=== PATIENT | male | born 1945 | race Caucasian/White ===

== ENCOUNTER → 2016-07-09 | Outpatient (CLI) | payer BC ==
[2016-07-09 10:19] LABS: CHLORIDE,CL 108 mmol/L (98-110); SODIUM,NA 141 mmol/L (136-146)
== END ==
LOC: MW.CHFP 09:34
PROVIDERS: ATTEND Student in an Organized Health Care Education/Training Program
DX: I10 Essential (primary) hypertension (principal); E11.65 Type 2 diabetes mellitus with hyperglycemia; E78.00 Pure hypercholesterolemia, unspecified
CPT/HCPCS: 36415; 80053; 80061; 82044; 83036

== ENCOUNTER 2017-04-03 20:20 | Emergency (ER) | payer BC, MEDICARE ==
[2017-04-03] MEDS ORDERED: Sodium Chloride 0.9% 2.5 ML Syringe FLUSH PRN (20:25)
[2017-04-03] MEDS ORDERED: Sodium Chloride 0.9% 10 ML Syringe FLUSH PRN (20:25)
--- NOTE | 2017-04-03 20:37 | EDM.PDOC ---
ED HPI GENERAL MEDICAL PROBLEM - General Stated Complaint: SLURRED SPEECH/PAIN LT EYE/POSSIBLE STROKE Time Seen by Provider: 04/03/17 20:22 Source of Information: Reports: Patient History Limitations: Reports: No Limitations - History of Present Illness INITIAL COMMENTS - FREE TEXT/NARRATIVE: HISTORY AND PHYSICAL: History of present illness: A Stroke Code was called at 2021 upon patient arrival. The attending physician Dr. Ross was also involved in this case upon patient arrival. Patient was ambulatory to the room with family. He presents to the emergency department today with complaints of left eye pain, slurred speech and difficulty finding words since approximately 1800 this evening. His states that he was last known well at 1800 and shortly after he started to complain of left eye pain and that the "news paper didn't make sense". The reports that he started to have difficulty finding his words and did have some slurred speech. Family members were called to the house and they brought him into the emergency department. Family members state that they have not witnessed any facial drooping or musculoskeletal weakness. Patient denies anychest pain, shortness of breath, weakness, abdominal pain, nausea, vomiting or diarrhea. Denies any fever or chills. Patient denies any recent injury, trauma, falls or head injury. Has a past medical history of cardiac bypass approximately 12 years ago, cholecystectomy and high blood pressure. Currently does take anticoagulants and antihypertensives. Review of systems: As per history of present illness and below otherwise all systems reviewed and negative. Past medical history: As per history of present illness and as reviewed below otherwise noncontributory. Surgical history: As per history of present illness and as reviewed below otherwise noncontributory. Social history: No reported history of drug or alcohol abuse. Family history: As per history of present illness and as reviewed below otherwise noncontributory. Physical exam: General: well-developed and well-nourished 71-year-old male. Alert and oriented Nontoxic appearing. HEENT: Atraumatic, normocephalic, pupils reactive, negative for conjunctival pallor or scleral icterus, mucous membranes moist, throat clear, neck supple, nontender, trachea midline. Lungs: Clear to auscultation, breath sounds equal bilaterally, chest nontender. Heart: S1S2, regular, negative for clicks, rubs, or JVD. Abdomen: Soft, nondistended, nontender. Negative for masses or hepatosplenomegaly. Negative for costovertebral tenderness. Pelvis: Stable nontender. Genitourinary: Deferred. Rectal: Deferred. Extremities: Atraumatic, negative for cords or calf pain. Neurovascular unremarkable. Neuro: Awake, alert, oriented. No sensory loss. No musculoskeltal weakness or deficets. Equal strength to both upper/lower extremities. CN II-XI intact. Speech is unclear. See NIH/Neuro Note. Patient is alert and oriented. Unable to recall his . He is hard of hearing. Able to follow commands appropriately. No facial drooping or tongue deviation noted. No musculoskeletal/motor involvement. Expressive aphasia noted during our interview, unable to identifying materials. Does have some mild dysarthria. He states, "I know what I should say, I just can't say it". NIH score of 4. 2054- consulting radiology called with the CT head report. There are no acute findings. Dr. Ross talking with family. 2104- [facility] in [place] consulted about transfer of patient. Dr. Pisano and Dr Yanez have accepted this patient. Beau recommended that TPA be given. Contraindication check-list was reviewed. Patient is a canidate based on timeline. 2119- Dr Ross discussed the use of TPA with family members, risks vs benefits were reviewed with them in great detail. They decided they did want to give this medication. patient is aware,risks versus benefits were reviewed with patient, and he is agreeable as well. NIH remains 4. Activase was given to patient based on weight (IV bolus given by Vandana - flight crew put infusion on their pump tubing). 2134- Flight crew here to take patient. appropriate paperwork was filled out.no signs remain stable. Diagnostics: CBC, CMP, troponin, PT/INR, head CT, chest x-ray, EKG, bedside blood sugar Therapeutics: Saline lock 2 Routine Neuro exams Activase (based on weight) IV bolus and infusion Impression: TIA vs Stroke Plan: Transfer to [facility]. Definitive disposition and diagnosis as appropriate pending reevaluation and review of above. Onset: Today Duration: Hour(s): Location: Reports: Generalized Improves with: Denies: None Worsens with: Denies: None Associated Symptoms: Reports: Confusion, Headaches. Denies: Chest Pain, Cough, cough w sputum, Diaphoresis, Fever/Chills, Loss of Appetite, Malaise, Nausea/ Vomiting, Rash, Seizure, Shortness of Breath, Syncope, Weakness left eye Pain Score (Numeric/FACES): 5 - Related Data Allergies Allergy/AdvReac Type Severity Reaction Status Date / Time No Known Allergies Allergy Verified 04/03/17 20:43 Home Meds: Home Meds Clopidogrel Bisulfate [Plavix] 1 tab PO DAILY 04/03/17 [History] ED ROS GENERAL - Review of Systems Review Of Systems: ROS reveals no pertinent complaints other than HPI. ED EXAM, NEURO - Physical Exam Exam: See Below (See dictation) Course - Vital Signs Last Recorded V/S: Last Vital Signs Temp 97 F 04/03/17 20:25 Pulse 77 04/03/17 20:25 Resp 18 04/03/17 20:25 BP 150/86 H 04/03/17 20:25 Pulse Ox 95 04/03/17 20:25 - Orders/Labs/Meds Orders: Active Orders 24 hr Category Date Time Status Assess Neurological Status [RC] ASDIRECTED Care 04/03/17 20:26 Active Blood Glucose Check, Bedside [RC] STAT Care 04/03/17 20:26 Active Cardiac Monitoring [RC] . DIRECTED Care 04/03/17 20:26 Active EKG Documentation Completion [RC] STAT Care 04/03/17 20:26 Active Height and Weight [RC] UPON Care 04/03/17 20:26 Active Initiate Acute Stroke Protocol [RC] STAT Care 04/03/17 20:26 Active NIH Stroke Scale [RC] ASDIRECTED Care 04/03/17 20:26 Active Nursing Bedside Swallow Screen [RC] ASDIRECTED Care 04/03/17 20:26 Active Oxygen Therapy [RC] ASDIRECTED Care 04/03/17 20:26 Active Vital Signs [RC] Q15M Care 04/03/17 20:26 Active Chest 1V Frontal [CR] Stat Exams 04/03/17 20:26 Taken Head wo Cont [CT] Stat Exams 04/03/17 20:26 Taken COMPREHENSIVE METABOLIC PN,CMP [CHEM] Stat Lab 04/03/17 20:56 Received INR,PT,PROTHROMBIN TIME [COAG] Stat Lab 04/03/17 20:56 Received PTT,PARTIAL THROMBOPLSTIN TIME [COAG] Stat Lab 04/03/17 20:56 Received TROPONIN I [CHEM] Stat Lab 04/03/17 20:56 Received TSH [CHEM] Stat Lab 04/03/17 20:56 Received Sodium Chloride 0.9% [Saline Flush] Med 04/03/17 20:25 Active 10 ml FLUSH ASDIRECTED PRN Sodium Chloride 0.9% [Saline Flush] Med 04/03/17 20:25 Active 2.5 ml FLUSH ASDIRECTED PRN Peripheral IV Insertion Adult [OM.PC] Stat Oth 04/03/17 20:26 Ordered Peripheral IV Insertion Adult [OM.PC] Stat Oth 04/03/17 20:26 Ordered Medication Orders Sodium Chloride (Saline Flush) 10 ml FLUSH ASDIRECTED PRN PRN Reason: Keep Vein Open Sodium Chloride (Saline Flush) 2.5 ml FLUSH ASDIRECTED PRN PRN Reason: Keep Vein Open Labs: Laboratory Tests 04/03/17 Range/Units 20:56 WBC 8.45 (4.0-11.0) K/uL RBC 4.91 (4.50-5.90) M/uL Hgb 15.9 (13.0-17.0) g/dL Hct 45.7 (38.0-50.0) % MCV 93.1 (80.0-98.0) fL MCH 32.4 H (27.0-32.0) pg MCHC 34.8 (31.0-37.0) g/dL RDW Std Deviation 46.6 (28.0-62.0) fl RDW Coeff of [place] 14 (11.0-15.0) % Plt Count 160 (150-400) K/uL MPV 11.50 (7.40-12.00) fL Neut % (Auto) 66.4 (48.0-80.0) % Lymph % (Auto) 22.1 (16.0-40.0) % [place] % (Auto) 7.1 (0.0-15.0) % Eos % (Auto) 3.9 (0.0-7.0) % Baso % (Auto) 0.5 (0.0-1.5) % Neut # (Auto) 5.6 (1.4-5.7) K/uL Lymph # (Auto) 1.9 (0.6-2.4) K/uL [place] # (Auto) 0.6 (0.0-0.8) K/uL Eos # (Auto) 0.3 (0.0-0.7) K/uL Baso # (Auto) 0.0 (0.0-0.1) K/uL Nucleated RBC % 0.0 /100WBC Nucleated RBCs # 0 K/uL Meds: Medications Generic Name Dose Route Start Last Admin Trade Name Freq PRN Reason Stop Dose Admin Sodium Chloride 10 ml 04/03/17 20:25 Saline Flush FLUSH ASDIRECTED PRN Keep Vein Open Sodium Chloride 2.5 ml 04/03/17 20:25 Saline Flush FLUSH ASDIRECTED PRN Keep Vein Open Discontinued Medications Generic Name Dose Route Start Last Admin Trade Name Freq PRN Reason Stop Dose Admin Alteplase, Recombinant Confirm 04/03/17 21:12 Activase Administered 04/03/17 21:13 Dose 100 mg .ROUTE .STK-MED ONE Factor IX (Pha) 1 unit 04/03/17 21:10 Kcentra IV 04/03/17 21:11 NOW STA Departure - Departure Time of Disposition: 21:42 Disposition: Home, Self-Care 01 Clinical Impression: Stroke Qualifiers: CVA mechanism: other Qualified Code(s): I63.8 - Other cerebral infarction - Discharge Information Referrals: PCP,None [Primary Care Provider] - - My Orders Last 24 Hours: My Active Orders 04/03/17 20:25 Sodium Chloride 0.9% [Saline Flush] 10 ml FLUSH ASDIRECTED PRN Sodium Chloride 0.9% [Saline Flush] 2.5 ml FLUSH ASDIRECTED PRN 04/03/17 20:26 Assess Neurological Status [RC] ASDIRECTED Blood Glucose Check, Bedside [RC] STAT Cardiac Monitoring [RC] . DIRECTED EKG Documentation Completion [RC] STAT Height and Weight [RC] UPON Initiate Acute Stroke Protocol [RC] STAT NIH Stroke Scale [RC] ASDIRECTED Nursing Bedside Swallow Screen [RC] ASDIRECTED Oxygen Therapy [RC] ASDIRECTED Vital Signs [RC] Q15M Chest 1V Frontal [CR] Stat Head wo Cont [CT] Stat Peripheral IV Insertion Adult [OM.PC] Stat Peripheral IV Insertion Adult [OM.PC] Stat 04/03/17 20:56 COMPREHENSIVE METABOLIC PN,CMP [CHEM] Stat INR,PT,PROTHROMBIN TIME [COAG] Stat PTT,PARTIAL THROMBOPLSTIN TIME [COAG] Stat TROPONIN I [CHEM] Stat TSH [CHEM] Stat - Assessment/Plan Last 24 Hours: My Active Orders 04/03/17 20:25 Sodium Chloride 0.9% [Saline Flush] 10 ml FLUSH ASDIRECTED PRN Sodium Chloride 0.9% [Saline Flush] 2.5 ml FLUSH ASDIRECTED PRN 04/03/17 20:26 Assess Neurological Status [RC] ASDIRECTED Blood Glucose Check, Bedside [RC] STAT Cardiac Monitoring [RC] . DIRECTED EKG Documentation Completion [RC] STAT Height and Weight [RC] UPON Initiate Acute Stroke Protocol [RC] STAT NIH Stroke Scale [RC] ASDIRECTED Nursing Bedside Swallow Screen [RC] ASDIRECTED Oxygen Therapy [RC] ASDIRECTED Vital Signs [RC] Q15M Chest 1V Frontal [CR] Stat Head wo Cont [CT] Stat Peripheral IV Insertion Adult [OM.PC] Stat Peripheral IV Insertion Adult [OM.PC] Stat 04/03/17 20:56 COMPREHENSIVE METABOLIC PN,CMP [CHEM] Stat INR,PT,PROTHROMBIN TIME [COAG] Stat PTT,PARTIAL THROMBOPLSTIN TIME [COAG] Stat TROPONIN I [CHEM] Stat TSH [CHEM] Stat
[2017-04-03] MEDS ORDERED: Sodium Chloride 0.9% 1,000 ML IV SCH (20:50)
[2017-04-03] MEDS ORDERED: PROTHROMBIN COMPLEX IV STA (21:10)
[2017-04-03] MEDS ORDERED: Alteplase 81 MG in Premix Bag 1 BAG IV STA (21:32)
[2017-04-03 21:35] LABS: CHLORIDE,CL 105 mmol/L (98-110); SODIUM,NA 139 mmol/L (136-146)
--- NOTE | 2017-04-04 10:02 | CT ---
EXAM DATE: 04/03/17 PATIENT'S AGE: 71 Patient: KULWANT LEE Facility: [place], [place] Site Site : 1945 Study: CT Head STROKE PROTOCOL STROKE-04/03/2017 8:39:01 PM Ordering Physician: PATRICIA Final Report: INDICATION: Stroke code. TECHNIQUE: CT head without IV contrast. FINDINGS: Small amounts of fluid and mucosal thickening in the frontal, ethmoidal, sphenoid, and maxillary sinuses consistent with mild sinusitis. Moderate aortic calcification. Dense calcifications in the posterior nasopharynx with some asymmetric increased density on the left nonspecific. No intracranial hemorrhage , edema, or mass effect. The left middle cerebral artery proximally is denser than the right but not dense enough to suggest a hyperdense MCA sign. Mild cerebral and cerebellar atrophy. 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 The tiny old lacunar infarct left basal ganglia. Remainder negative. IMPRESSION: No acute intracranial disease. Chronic intracranial findings as described above. Mild inflammatory changes in paranasal sinuses. Other findings as above report called referring clinical service. Please note that all CT scans at this facility use dose modulation, iterative reconstruction, and/or weight-based dosing when appropriate to reduce radiation dose to as low as reasonably achievable. Dictated by Yrn Schmitt MD @ Apr 03 2017 8:54PM (Electronic Signature) Report Signed by Proxy. JANAK
--- NOTE | 2017-04-04 10:04 | CR ---
EXAM DATE: 04/03/17 PATIENT'S AGE: 71 Patient: KULWANT LEE Facility: [place], [place] Site Site : 1945 Study: XRay Chest [id number]/25/2018 8:42:25 PM Ordering Physician: PATRICIA Final Report: INDICATION: Stroke TECHNIQUE: Chest 1 view. COMPARISON: 10/12/2015 FINDINGS: Cardiovascular and mediastinum: Heart size and vasculature are normal in caliber and appearance. Sternotomy wires are noted. Mediastinum is within normal limits. Lungs and pleural space: Lungs are clear. No sign of infiltrate or mass. No sign of pleural effusion. No pneumothorax. Bones and soft tissues: No significant findings. IMPRESSION: Unremarkable chest. Dictated by Chemo Hughes MD @ 04/03/2017 8:52:23 PM Dictated by: Chemo Hughes MD @ 04/03/2017 20:52:29 (Electronic Signature) Report Signed by Proxy. JANAK
== END 2017-04-03 21:45 ==
LOC: MW.ED 20:20
DX: I63.8 Other cerebral infarction (principal); Z79.899 Other long term (current) drug therapy
CPT/HCPCS: 36415; 70450; 71045; 80053; 84443; 84484; 85025; 85610; 85730; 93005; 96361; 96374; 99291; J2997; J7040

== ENCOUNTER 2024-07-16 06:23 | Day surgery (SDC) | payer MEDICARE, BC ==
[~2024-07-16 06:23] MED LIST: Acetaminophen 500 MG Tab PO ONE; Pregabalin 75 MG Cap PO SCH
[2024-07-16] MEDS ORDERED: Bupivacaine 0.5% 30 ML SDV ONE (07:18)
[2024-07-16] MEDS ORDERED: Propofol 200 MG/20 ML SDV ONE (07:18)
[2024-07-16] MEDS ORDERED: fentaNYL 100 MCG/2 ML SDV ONE ×2 (07:18→08:38)
[2024-07-16] MEDS ORDERED: Lidocaine 1% 20 ML MDV ONE ×2 (07:18→07:33)
[2024-07-16] MEDS ORDERED: dexmedeTOMIDine HCl 200 MCG/2 ML SDV ONE (07:19)
[2024-07-16] MEDS ORDERED: Sodium Chloride 0.9% 20 ML ONE (07:19)
[2024-07-16] MEDS: Lactated Ringers 1,000 ML IV SCH (07:20)
[2024-07-16] MEDS ORDERED: Ketamine HCL/NACL, ISO-OSM 50 MG/5 ML Syringe ONE (07:50)
[2024-07-16] MEDS ORDERED: ceFAZolin 2 GM Vial ONE (08:01)
[2024-07-16] MEDS ORDERED: Phenylephrine HCl In 0.9% NaCl 1 MG/10 ML Syringe ONE (08:08)
[2024-07-16] MEDS ORDERED: Metoclopramide 10 MG/2 ML SDV IVPUSH PRN (08:26)
[2024-07-16] MEDS ORDERED: Naloxone 0.4 MG/ML SDV IVPUSH PRN (08:26)
[2024-07-16] MEDS ORDERED: fentaNYL 50 MCG/ML SDV IVPUSH PRN (08:26)
[2024-07-16] MEDS ORDERED: Morphine 2 MG/ML SYRINGE IVPUSH PRN (08:26)
[2024-07-16] MEDS ORDERED: Phenylephrine HCl In 0.9% NaCl 1 MG/10 ML Syringe IVPUSH PRN (08:26)
[2024-07-16] MEDS ORDERED: Albuterol 0.083% 2.5 MG/3 ML Neb Soln NEB PRN (08:26)
[2024-07-16] MEDS ORDERED: Ondansetron 4 MG/2 ML SDV IVPUSH PRN (08:26)
[2024-07-16] MEDS ORDERED: HYDROmorphone 1 MG/ML Syringe IVPUSH PRN (08:26)
[2024-07-16] MEDS ORDERED: ceFAZolin 2 GM in Water For Injection, Sterile 20 ML IVPUSH ONE (08:38)
== END 2024-07-16 10:30 | disposition home or self-care (01) ==
LOC: MW.SDS 06:23
PROVIDERS: ATTEND Surgery
DX: C34.31 Malignant neoplasm of lower lobe, right bronchus or lung (principal); J44.9 Chronic obstructive pulmonary disease, unspecified; E11.9 Type 2 diabetes mellitus without complications; E78.00 Pure hypercholesterolemia, unspecified; I10 Essential (primary) hypertension; Z79.84 Long term (current) use of oral hypoglycemic drugs; Z79.899 Other long term (current) drug therapy
CPT/HCPCS: 36561; 71045; 76000; C1788; J0665; J0690; J1642; J2704; J3010; J7120; 00532; 99100; J2371; J3490

== ENCOUNTER 2024-12-21 09:45 | Emergency (ER) | payer BC, MEDICARE ==
[2024-12-21] MEDS ORDERED: Sodium Chloride 0.9% 10 ML Syringe FLUSH PRN (09:48)
[2024-12-21] MEDS ORDERED: Sodium Chloride 0.9% 2.5 ML Syringe FLUSH PRN (09:48)
[2024-12-21 10:24] LABS: BASOPHILS ABSOLUTE AUTO 0.02 K/uL (0.00-0.20); BASOPHILS PERCENT AUTO 0.3 % (0.0-1.0); EOSINOPHILS ABSOLUTE AUTO 0.02 K/uL (0.00-0.45); EOSINOPHILS PERCENT AUTO 0.3 % (0.0-6.0); IMMATURE GRAN ABSOLUTE AUTO 0.05 K/uL (0.00-0.05); IMMATURE GRAN PERCENT AUTO 0.9 % (0.0-0.4); LYMPHOCYTES ABSOLUTE AUTO 0.34 K/uL (1.00-4.80); LYMPHOCYTES PERCENT AUTO 5.8 % (24.0-44.0); MEAN PLATELET VOLUME 11.2 fL (9.4-12.4); MONOCYTES ABSOLUTE AUTO 0.67 K/uL (0.00-0.80); MONOCYTES PERCENT AUTO 11.5 % (0.0-8.0); NEUTROPHILS ABSOLUTE AUTO 4.75 K/uL (1.80-7.70); NEUTROPHILS PERCENT AUTO 81.2 % (41.0-71.0); NRBC ABSOLUTE 0.00 K/uL (0.00-0.02); NRBC PERCENT 0.0 /100WBC (0.0-0.2); PLATELET COUNT,PLT 153 K/uL (150-400); RED BLOOD CELL COUNT 3.08 M/uL (4.52-5.90); WHITE BLOOD CELL COUNT,WBC 5.85 K/uL (3.9-11.3)
[2024-12-21 10:40] LABS: INR 1.3 (0.86-1.11); PTT,PARTIAL THROMBOPLSTIN TIME 36.6 SEC (23.9-30.7)
[2024-12-21 10:54] LABS: A/G RATIO 0.5 (0.9-1.6); ALANINE AMINOTRANSFERASE,ALT 32.0 IU/L (14-63); ASPARTATE AMNIOTRANSFERASE,AST 18.0 IU/L (15-37); BILIRUBIN TOTAL 0.8 mg/dL (0.2-1.0); BLOOD UREA NITROGEN,BUN 32.0 mg/dL (7.0-18.0); CARBON DIOXIDE,CO2 22.1 mmol/L (21.0-32.0); CHLORIDE,CL 100.0 mmol/L (98-107); CREATININE 1.3 mg/dL (0.8-1.3); EST CRCL DRUG DOSING (CG) 52.69 mL/min; ESTIMATED GFR 56.0 mL/min (>60); GLUCOSE RANDOM 274.0 mg/dL (74-106); POTASSIUM,K 3.5 mmol/L (3.5-5.1); PRO B-TYPE NATRIUR PEPT,BNPPRO 2374.0 pg/mL (0-450); PROTEIN TOTAL,TP 5.8 g/dL (6.4-8.2); SODIUM,NA 134.0 mmol/L (136-148)
[2024-12-21 10:56] LABS: LACTIC ACID 3.2 mmol/L (0.4-2.0)
[2024-12-21 11:06] LABS: CORONAVIRUS COVID-19 NAA NEGATIVE (NEGATIVE); INFLUENZA A NAA NEGATIVE (NEGATIVE); INFLUENZA B NAA NEGATIVE (NEGATIVE)
[2024-12-21] MEDS: Diltiazem 25 MG/5 ML SDV IVPUSH ONE (11:09)
[2024-12-21] MEDS: Magnesium Sulfate 2 GM/50 mL 2 GM in Premix Bag 1 BAG IV ONE (11:17)
[2024-12-21 12:06] LABS: APPEARANCE,URINE CLEAR; GLUCOSE,URINE 100 mg/dL (NEGATIVE); OCCULT BLOOD,URINE NEGATIVE (NEGATIVE)
[2024-12-21 12:16] LABS: EPITHELIAL CELLS,URINE NOT SEEN (NONE-FEW)
[2024-12-21] MEDS: Norepinephrine Bit/D5W Premix 4 MG/250 ML BAG IV SCH (12:34)
== END 2024-12-21 16:41 ==
LOC: MW.ED 09:45
DX: J18.9 Pneumonia, unspecified organism (principal); J98.4 Other disorders of lung; I48.91 Unspecified atrial fibrillation; I95.9 Hypotension, unspecified; C34.90 Malignant neoplasm of unspecified part of unspecified bronchus or lung; Z79.899 Other long term (current) drug therapy; Z79.84 Long term (current) use of oral hypoglycemic drugs
CPT/HCPCS: 36415; 70450; 71045; 80053; 81001; 83605; 83690; 83735; 83880; 84484; 85025; 85610; 85730; 87636; 93005; 96361; 96365; 96366; 96367; 96368; 96375; 96376; 99285; J0692; J1160; J1163; J3475; J7030; 93010